=== PATIENT | female | born 1990 | race Caucasian/White ===

== ENCOUNTER 2020-11-21 12:43 | Emergency (ER) | payer OTHER ==
[2020-11-21] MEDS ORDERED: Morphine 4 MG/ML VIAL ONE (13:22)
[2020-11-21] MEDS ORDERED: Ketorolac Tromethamine 30 MG/ML VIAL ONE (13:22)
[2020-11-21 13:27] LABS: Pregnancy Test - Urine (BHCG) Negative (Negative); Pregu Control Background? CLEAR/WHITE (CLR/WHITE); Pregu Control Bar Appear? YES (CONTROL BAR); Specific Gravity 1.005 (1.002-1.036)
[2020-11-21 13:30] LABS: Bilirubin Neg (Negative); Blood, Urine Negative (Negative); Clarity Clear (Clear); Glucose, Urine (Dipstick) Normal (Negative); Ketone, Urine Negative (Negative); Leukocyte Negative (Negative); Nitrite Negative (Negative); Protein, Urine (Dipstick) Negative (Neg-Trace); Specific Gravity, Urine 1.005 (1.002-1.036); Urobilinogen Normal mg/dL (Less than 2)
[2020-11-21 13:35] LABS: ALT (SGPT) 12 U/L (8-55); AST (SGOT) 17 U/L (5-34); Albumin 4.6 g/dL (3.5-5.0); Alkaline Phosphatase 80 U/L (40-110); Anion Gap 11 mmol/L (10-20); BUN (Urea Nitrogen) 14 mg/dL (7.0-18.7); Bilirubin, Total 0.4 mg/dL (0.2-1.2); Calc. Creatinine Clearance 0 mL/min (70-130); Calcium 9.3 mg/dL (7.8-10.44); Carbon Dioxide 28 mmol/L (22-29); Chloride 103 mmol/L (98-107); Globulin 3.4 g/dL (2.4-3.5); Glucose 91 mg/dL (70-105); Potassium 4.1 mmol/L (3.5-5.1); Sodium 138 mmol/L (136-145)
[2020-11-21 13:43] LABS: #Eosinphils 0.1 10x3/uL (0.0-0.5); #Monocytes 0.6 10x3/uL (0.0-1.1); #Neutrophils 3.3 10x3/uL (1.5-8.4); %Basophils 0.3 % (0.0-2.0); %Eosinophils 1.9 % (0.0-6.0); %Monocytes 8.3 % (0.0-10.0); %Neutrophils 48.4 % (40.0-75.0); Hemoglobin 13.6 g/dL (12.0-15.5); Mean Corpuscular HGB CONC 34.4 g/dL (32.0-36.0); Mean Corpuscular Hemoglobin 30.8 pg (27.0-33.0); Mean Corpuscular Volume 89.4 fl (81.6-98.3); Mean Platelet Volume 10.8 fl (7.4-10.4); Platelet Count 229 10x3/uL (150-450); RBC Distribution Width 11.4 % (11.5-14.5); Red Blood Cell (RBC) Count 4.42 10x6/uL (3.90-5.03); White Blood Cell (WBC) Count 6.9 10x3/uL (3.5-10.5)
== END 2020-11-21 16:18 | disposition home or self-care (01) ==
LOC: CSHERS 12:43
DX: R10.31 Right lower quadrant pain (principal)
CPT/HCPCS: 74177; 76856; 80053; 81003; 81025; 85025; 96374; 96375; J1885; J2270

== ENCOUNTER 2021-11-07 09:25 | Inpatient (IN) | payer OTHER ==
[2021-11-07] MEDS ORDERED: hydrALAZINE 20 MG/ML VIAL SLOW IVP PRN (09:37)
[2021-11-07] MEDS ORDERED: HYDROcodone/Acetaminophen 5/325 mg Tablet PO PRN ×2 (09:37)
[2021-11-07] MEDS ORDERED: Butorphanol Tartrate 1 MG/ML VIAL SLOW IVP PRN (09:37)
[2021-11-07] MEDS ORDERED: Diphenoxylate HCl/Atropine Tablet PO PRN ×2 (09:37)
[2021-11-07] MEDS ORDERED: Misoprostol 200 MCG TAB PR PRN (09:37)
[2021-11-07] MEDS ORDERED: Lidocaine 1% (PF) 30 ML VIAL SC PRN (09:37)
[2021-11-07] MEDS ORDERED: Acetaminophen 500 MG TAB PO PRN (09:37)
[2021-11-07] MEDS ORDERED: Docusate 100 MG CAP PO PRN (09:37)
[2021-11-07] MEDS ORDERED: Ondansetron PF 4 MG/2 ML Vial IVP PRN (09:37)
[2021-11-07] MEDS ORDERED: Ibuprofen 800 MG TAB PO PRN (09:37)
[2021-11-07] MEDS ORDERED: Promethazine HCl 25 MG/ML VIAL IM PRN (09:37)
[2021-11-07] MEDS ORDERED: NS w/ Oxytocin 30 units 500 ML IV SCH ×2 (09:45)
[2021-11-07 10:09] VITALS: BMI 29.0
[2021-11-07 10:28] LABS: Hemoglobin 11.8 g/dL (12.0-15.5); Mean Corpuscular HGB CONC 34.3 g/dL (32.0-36.0); Mean Corpuscular Hemoglobin 31.1 pg (27.0-33.0); Mean Corpuscular Volume 90.5 fl (81.6-98.3); Mean Platelet Volume 10.9 fl (7.4-10.4); Platelet Count 170 10x3/uL (150-450); RBC Distribution Width 12.8 % (11.5-14.5); White Blood Cell (WBC) Count 8.8 10x3/uL (3.5-10.5)
[2021-11-07 11:02] LABS: Syphilis Antibody Nonreactive (Nonreactive); Syphilis Antibody Index 0.05 S/CO (<1.00 Non-Reactive)
[2021-11-07 11:03] LABS: HIV (1/2) Antibody/Antigen Non-Reactive (NonReactive); HIV 1/2 INDEX 0.09 S/CO (<1.00); Hep B Surf Ag Non-Reactive S/CO (NonReactive)
[2021-11-07 11:16] LABS: HBSAg Index 0.16 S/CO (0-0.99)
[2021-11-07] MEDS ORDERED: Misoprostol 200 MCG TAB ONE (14:13)
[2021-11-07] MEDS ORDERED: Methylergonovine 0.2 MG/ML VIAL ONE (14:14)
[2021-11-07] MEDS ORDERED: Carboprost 250 MCG/ML AMP ONE (14:14)
[2021-11-07] MEDS: Lactated Ringer's 1,000 ML IV SCH ×2 (22:58→22:59)
[2021-11-08] MEDS ORDERED: Boostrix 0.5 ML (Tdap) VIAL IM ONE (07:10)
[2021-11-08] MEDS ORDERED: Zolpidem Tartrate 5 MG TAB PO PRN (07:10)
[2021-11-08] MEDS ORDERED: Lanolin Ointment 7 GM TUBE TOP PRN (07:10)
[2021-11-08] MEDS ORDERED: hydrALAZINE 20 MG/ML VIAL SLOW IVP PRN (07:10)
[2021-11-08] MEDS ORDERED: diphenhydrAMINE 25 MG CAP PO PRN (07:10)
[2021-11-08] MEDS ORDERED: Preparation H Ointment 28 GM TUBE PR PRN (07:10)
[2021-11-08] MEDS ORDERED: Benzocaine-Menthol 82.5 ML CAN TOP PRN (07:10)
[2021-11-08] MEDS ORDERED: Bisacodyl 10 MG SUPP PR PRN (07:10)
[2021-11-08] MEDS ORDERED: Ondansetron PF 4 MG/2 ML Vial IVP PRN (07:10)
[2021-11-08] MEDS ORDERED: HYDROcodone/Acetaminophen 5/325 mg Tablet PO PRN ×2 (07:10)
[2021-11-08] MEDS ORDERED: Misoprostol 200 MCG TAB VAG PRN (07:10)
[2021-11-08] MEDS ORDERED: Milk Of Magnesia 30 ML UDCUP PO PRN (07:10)
[2021-11-08] MEDS ORDERED: Witch Hazel-Glycerin 1 EACH JAR TOP PRN (07:11)
[2021-11-08] MEDS ORDERED: NS w/ Oxytocin 30 units 500 ML IV SCH (07:15)
[2021-11-08] MEDS ORDERED: Docusate 100 MG CAP PO SCH (09:00)
[2021-11-08] MEDS ORDERED: Prenatal Vitamin 1 TAB PO SCH (09:00)
[2021-11-08] MEDS: Ferrous Sulfate 325 MG TAB PO SCH ×2 (10:07→17:33)
[2021-11-08 11:52] VITALS: BP 106/53; TEMP 98.3
[2021-11-08] MEDS ORDERED: Ibuprofen 800 MG TAB PO SCH (12:00)
== END 2021-11-08 21:10 | disposition home or self-care (01) | DRG 806 ==
LOC: CSHLD 09:25 → CSHPED 21:36
PROVIDERS: ADMIT Obstetrics & Gynecology; ATTEND Obstetrics & Gynecology
PROC: 10E0XZZ Delivery of Products of Conception, External Approach (ICD-10-PCS; principal; 2021-11-07)
PROC: 10907ZC Drainage of Amniotic Fluid, Therapeutic from Products of Conception, Via Natural or Artificial Opening (ICD-10-PCS; 2021-11-07)
DX: O99.344 Other mental disorders complicating childbirth (principal); O99.354 Diseases of the nervous system complicating childbirth; Z37.0 Single live birth; O99.62 Diseases of the digestive system complicating childbirth; Z3A.40 40 weeks gestation of pregnancy; Z86.16 Personal history of COVID-19; K21.9 Gastro-esophageal reflux disease without esophagitis; F41.9 Anxiety disorder, unspecified; F32.A Depression, unspecified; G43.909 Migraine, unspecified, not intractable, without status migrainosus; O43.113 Circumvallate placenta, third trimester
CPT/HCPCS: 85027; 86780; 86850; 86900; 86901; 87340; 87389; J2590

== ENCOUNTER 2024-07-10 17:48 | Emergency (ER) | payer OTHER ==
[2024-07-10] MEDS ORDERED: Acetaminophen 500 MG TAB ONE (19:15)
== END 2024-07-10 21:25 | disposition home or self-care (01) ==
LOC: CSHERS 17:48
DX: O20.9 Hemorrhage in early pregnancy, unspecified (principal); Z3A.09 9 weeks gestation of pregnancy; Y04.8XXA Assault by other bodily force, initial encounter; Y92.69 Other specified industrial and construction area as the place of occurrence of the external cause; Y99.0 Civilian activity done for income or pay
CPT/HCPCS: 76815

== ENCOUNTER 2024-08-25 16:29 | Emergency (ER) | payer BC, OTHER ==
[2024-08-25] MEDS ORDERED: Acetaminophen 325 MG TAB ONE (17:29)
[2024-08-25 17:34] LABS: #Basophils 0.02 10x3/uL (0.0-0.2); #Eosinophils 0.07 10x3/uL (0.0-0.5); #Monocytes 0.52 10x3/uL (0.0-1.1); #Neutrophils 6.41 10x3/uL (1.5-8.4); %Basophils 0.2 % (0.0-2.0); %Eosinophils 0.8 % (0.0-6.0); %Lymphocytes 21.3 % (18.0-47.0); %Monocytes 5.8 % (0.0-10.0); %Neutrophils 71.7 % (40.0-75.0); Hematocrit 35.3 % (34.9-44.5); Hemoglobin 12.3 g/dL (12.0-15.5); Mean Corpuscular HGB CONC 34.8 g/dL (32.0-36.0); Mean Corpuscular Hemoglobin 30.1 pg (27.0-33.0); Mean Corpuscular Volume 86.5 fL (81.6-98.3); Mean Platelet Volume 10.5 fL (7.4-10.4); Platelet Count 170 10x3/uL (150-450); Red Blood Cell (RBC) Count 4.08 10x6/uL (3.90-5.03)
[2024-08-25 17:46] LABS: ALT (SGPT) 11 U/L (8-55); AST (SGOT) 16 U/L (5-34); Albumin 3.7 g/dL (3.5-5.0); Alkaline Phosphatase 44 U/L (40-110); Anion Gap 12 mmol/L (10-20); BUN (Urea Nitrogen) 9 mg/dL (7.0-18.7); Bilirubin, Total 0.4 mg/dL (0.2-1.2); Calc. Creatinine Clearance 0 mL/min (70-130); Calcium 8.9 mg/dL (7.8-10.44); Carbon Dioxide 21 mmol/L (22-29); Chloride 104 mmol/L (98-107); Estimated GFR 116; Globulin 3.7 g/dL (2.4-3.5); Glucose 89 mg/dL (70-105); Potassium 4.2 mmol/L (3.5-5.1); Protein, Total 7.4 g/dL (6.0-8.3); Sodium 133 mmol/L (136-145)
[2024-08-25 17:52] LABS: Bilirubin Neg (Negative); Blood, Urine 250 (Negative); Clarity Clear (Clear); Glucose, Urine (Dipstick) Normal (Negative); Ketone, Urine Negative (Negative); Leukocyte Negative (Negative); Nitrite Negative (Negative); Protein, Urine (Dipstick) 15 mg/dl (Neg-Trace); Urobilinogen Normal mg/dL (Less than 2)
[2024-08-25 17:58] LABS: Bacteria/HPF Rare-Few HPF (None Seen); CAUTI Indications for Culture Pelvic or flank pain; RBC/HPF 21-50 HPF (0-3); Squamous Epithelial 0-3 HPF (0-3); WBC/HPF 0-3 HPF (0-3)
[2024-08-25 18:00] LABS: Urine Culture Reflex No No
== END 2024-08-25 19:20 | disposition home or self-care (01) ==
LOC: CSHERS 16:29
DX: O43.892 Other placental disorders, second trimester (principal); O99.891 Other specified diseases and conditions complicating pregnancy; R10.9 Unspecified abdominal pain; Z3A.15 15 weeks gestation of pregnancy
CPT/HCPCS: 76856; 80053; 81001; 85025

== ENCOUNTER 2025-04-11 07:56 | Outpatient (CLI) | payer BC, OTHER | END 2025-04-11 07:57 | disposition home or self-care (01) | LOC: CSHULT 07:56 | PROVIDERS: ATTEND Obstetrics & Gynecology | DX: N63.11 Unspecified lump in the right breast, upper outer quadrant (principal) ==